=== PATIENT | male | born 1995 | race African-American/Black ===

== ENCOUNTER 2024-02-06 00:54 | Emergency (ER) | payer MEDICAID ==
[~2024-02-06] VITALS: Ht 185.4 cm; Wt 102.0 kg
[2024-02-06 01:14] VITALS: O2SAT 98
[2024-02-06] MEDS: LEVETIRACETAM 1000MG PREMIX 100 ML IV ONE (02:32)
[2024-02-06] MEDS ORDERED: KEPP500 MT (02:36)
[2024-02-06 04:10] VITALS: BP 125/70; PULSE 90; RESP 19; TEMP 36.83628; O2SAT 100
== END 2024-02-06 04:14 | disposition home or self-care (01) ==
LOC: ER 00:54
DX: R56.9 Unspecified convulsions (principal)
CPT/HCPCS: 96365; 99284; J1953; Z7610 ×3